=== PATIENT | male | born 1935 | race Caucasian/White ===

== ENCOUNTER 2017-06-04 09:28 | Emergency (ER) | payer MEDICARE, OTHER ==
--- NOTE | 2017-06-04 10:45 | EDM.PDOC ---
ED HPI GENERAL MEDICAL PROBLEM - General Chief Complaint: Back Pain or Injury Stated Complaint: BACK PAIN Time Seen by Provider: 06/04/17 10:45 - History of Present Illness INITIAL COMMENTS - FREE TEXT/NARRATIVE: 81-year-old male presents to the emergency room with worsening chest wall type pain. The patient has had this pain for over a month it is progressively getting worse and was really bad last night. The pain seems to be just below his scapula and to the outside of his rib cage and is very positional if he gets the wrong position it's sharp stabbing pain. This pain does not make his breathing difficulties or shortness of breath any worse. The patient does have worsening cough nonproductive no fevers or chills the patient is treated for congestive heart failure. No history of blood clots in the past he takes aspirin no blood thinners. Prior to this pain getting worse a little over a month ago the patient has had intermittent episodes of this in the past not this severe. Right Back Pain Score (Numeric/FACES): 10 - Related Data Allergies Allergy/AdvReac Type Severity Reaction Status Date / Time aspirin AdvReac Mild Nausea Verified 08/01/14 11:49 Home Meds: Home Meds Aspirin [Halfprin] 81 mg PO DAILY 06/26/14 [History] Hydrocodone/Acetaminophen [Zahl 5-325 Tablet] 1 each PO BEDTIME PRN #10 tablet 06/04/17 [Rx] Sotalol HCl [Sotalol] 40 mg PO BID 06/04/17 [History] atorvaSTATin [Lipitor] 5 mg PO BEDTIME 06/04/17 [History] Past Medical History HEENT History: Reports: Hard of Hearing, Impaired Vision Cardiovascular History: Reports: Heart Failure, High Cholesterol, Hypertension, NE Respiratory History: Reports: SOB Gastrointestinal History: Reports: Diverticulosis Genitourinary History: Reports: Prostate Disorder Musculoskeletal History: Reports: Arthritis Endocrine/Metabolic History: Reports: Diabetes, Type II - Past Surgical History GI Surgical History: Reports: Cholecystectomy Social & Family History - Family History Family Medical History: Noncontributory - Tobacco Use Smoking Status *Q: Never Smoker - Caffeine Use Caffeine Use: Reports: Coffee - Recreational Drug Use Recreational Drug Use: No ED ROS GENERAL - Review of Systems Review Of Systems: See Below Constitutional: Reports: No Symptoms. Denies: Fever, Chills, Weakness, Fatigue HEENT: Reports: No Symptoms Respiratory: Reports: Pleuritic Chest Pain, Cough. Denies: Shortness of Breath , Wheezing, Sputum Cardiovascular: Reports: Chest Pain. Denies: Edema, Palpitations, PND GI/Abdominal: Reports: No Symptoms : Reports: No Symptoms Musculoskeletal: Reports: Back Pain Skin: Reports: No Symptoms Neurological: Reports: No Symptoms Psychiatric: Reports: No Symptoms ED EXAM, UPPER BACK/NECK PAIN - Physical Exam Exam: See Below Exam Limited By: No Limitations General Appearance: Alert, No Apparent Distress, Other (The patient is pain- free if he does not move the wrong direction he is in no acute distress vital signs stable) Head Exam: Atraumatic, Normocephalic Neck Exam: Non-Tender, Full Range of Motion, Normal Alignment, Normal Inspection. No: Tender Midline Cardiovascular/Respiratory: Regular Rate, Rhythm, Normal Breath Sounds, No Respiratory Distress. No: Murmur GI/Abdominal: Normal Bowel Sounds, Soft, Non-Tender, No Organomegaly, No Distention, No Abnormal Bruit, No Mass Extremities: Normal Inspection, No Pedal Edema Neurologic: No Motor/Sensory Deficits, Alert, Oriented x 3 Psychiatric: Normal Affect, Normal Mood Course - Vital Signs Last Recorded V/S: Last Vital Signs Temp 35.6 C 06/04/17 09:37 Pulse 55 L 06/04/17 09:37 Resp 16 06/04/17 09:37 BP 152/96 H 06/04/17 09:37 Pulse Ox 96 06/04/17 09:37 - Orders/Labs/Meds Orders: Active Orders 24 hr Category Date Time Status EKG 12 Lead [EKG Documentation Completion] [RC] STAT Care 06/04/17 10:57 Active Sodium Chloride 0.9% [Normal Saline] 1,000 ml Med 06/04/17 12:30 Active IV ASDIRECTED Sodium Chloride 0.9% [Normal Saline] 100 ml Med 06/04/17 13:45 Active IV ASDIRECTED Sodium Chloride 0.9% [Saline Flush] Med 06/04/17 13:35 Active 10 ml FLUSH ONETIME PRN Medication Orders Sodium Chloride (Normal Saline) 1,000 mls @ 125 mls/hr IV ASDIRECTED CAROLYN Sodium Chloride (Normal Saline) 100 mls @ 80 mls/hr IV ASDIRECTED CAROLYN Last Admin: 06/04/17 14:02 Dose: 80 mls/hr Sodium Chloride (Saline Flush) 10 ml FLUSH ONETIME PRN PRN Reason: IV FLUSH Last Admin: 06/04/17 14:02 Dose: 10 ml Labs: Laboratory Tests 06/04/17 06/04/17 06/04/17 Range/Units 11:20 11:20 11:20 WBC 3.90 L (4.23-9.07) K/mm3 RBC 4.64 (4.63-6.08) M/mm3 Hgb 14.1 (13.7-17.5) gm/L Hct 40.4 (40.1-51.0) % MCV 87.1 (79.0-92.2) fl MCH 30.4 (25.7-32.2) pg MCHC 34.9 (32.2-35.5) g/dl RDW Std Deviation 40.9 (35.1-43.9) fL Plt Count 191 (163-337) K/mm3 MPV 9.5 (9.4-12.3) fl Neutrophils % (Manual) 45 (40-60) % Band Neutrophils % 0 (0-10) % Lymphocytes % (Manual) 46 H (20-40) % Atypical Lymphs % 0 % Monocytes % (Manual) 7 (2-10) % Eosinophils % (Manual) 2 (0.8-7.0) % Basophils % (Manual) 0 L (0.2-1.2) Platelet Estimate Adequate Microcytosis 1+ slight RBC Morph Comment Abnormal D-Dimer, Quantitative (0.19-0.59) mg/L Sodium 140 (136-145) mEq/L Potassium 4.2 (3.5-5.1) mEq/L Chloride 105 (98-107) mEq/L Carbon Dioxide 29 (21-32) mEq/L Anion Gap 10.2 (5-15) BUN 22 H (7-18) mg/dL Creatinine 1.3 (0.7-1.3) mg/dL Est Cr Clr Drug Dosing 50.57 mL/min Estimated GFR (MDRD) 53 (>60) mL/min BUN/Creatinine Ratio 16.9 (14-18) Glucose 134 H (83-115) mg/dL Calcium 9.6 (8.5-10.1) mg/dL Total Bilirubin 0.4 (0.2-1.0) mg/dL AST 18 (15-37) U/L ALT 29 (16-63) U/L Alkaline Phosphatase 81 (46-116) U/L Troponin I < 0.017 (0.00-0.056) ng/mL Voi-O-Mofairrgbxu Pept 63 (0-450) pg/mL Total Protein 6.8 (6.4-8.2) g/dl Albumin 3.7 (3.4-5.0) g/dl Globulin 3.1 gm/dL Albumin/Globulin Ratio 1.2 (1-2) 06/04/17 Range/Units 11:20 WBC (4.23-9.07) K/mm3 RBC (4.63-6.08) M/mm3 Hgb (13.7-17.5) gm/L Hct (40.1-51.0) % MCV (79.0-92.2) fl MCH (25.7-32.2) pg MCHC (32.2-35.5) g/dl RDW Std Deviation (35.1-43.9) fL Plt Count (163-337) K/mm3 MPV (9.4-12.3) fl Neutrophils % (Manual) (40-60) % Band Neutrophils % (0-10) % Lymphocytes % (Manual) (20-40) % Atypical Lymphs % % Monocytes % (Manual) (2-10) % Eosinophils % (Manual) (0.8-7.0) % Basophils % (Manual) (0.2-1.2) Platelet Estimate Microcytosis RBC Morph Comment D-Dimer, Quantitative 1.69 H (0.19-0.59) mg/L Sodium (136-145) mEq/L Potassium (3.5-5.1) mEq/L Chloride (98-107) mEq/L Carbon Dioxide (21-32) mEq/L Anion Gap (5-15) BUN (7-18) mg/dL Creatinine (0.7-1.3) mg/dL Est Cr Clr Drug Dosing mL/min Estimated GFR (MDRD) (>60) mL/min BUN/Creatinine Ratio (14-18) Glucose (83-115) mg/dL Calcium (8.5-10.1) mg/dL Total Bilirubin (0.2-1.0) mg/dL AST (15-37) U/L ALT (16-63) U/L Alkaline Phosphatase (46-116) U/L Troponin I (0.00-0.056) ng/mL Irp-G-Zlahzdoysjh Pept (0-450) pg/mL Total Protein (6.4-8.2) g/dl Albumin (3.4-5.0) g/dl Globulin gm/dL Albumin/Globulin Ratio (1-2) Meds: Medications Generic Name Dose Route Start Last Admin Trade Name Freq PRN Reason Stop Dose Admin Sodium Chloride 1,000 mls @ 125 mls/hr 06/04/17 12:30 Normal Saline IV ASDIRECTED CAROLYN Sodium Chloride 100 mls @ 80 mls/hr 06/04/17 13:45 06/04/17 14:02 Normal Saline IV 80 mls/hr ASDIRECTED CAROLYN Administration Sodium Chloride 10 ml 06/04/17 13:35 06/04/17 14:02 Saline Flush FLUSH 10 ml ONETIME PRN Administration IV FLUSH Discontinued Medications Generic Name Dose Route Start Last Admin Trade Name Freq PRN Reason Stop Dose Admin Sodium Chloride 500 mls @ 999 mls/hr 06/04/17 12:18 06/04/17 12:29 Normal Saline IV 06/04/17 12:48 999 mls/hr .BOLUS ONE Administration Iopamidol 100 ml 06/04/17 13:35 06/04/17 14:02 Isovue-370 (76%) IVPUSH 06/04/17 13:36 100 ml ONETIME ONE Administration - Re-Assessments/Exams Free Text/Narrative Re-Assessment/Exam: 06/04/17 14:52 Laboratory evaluation unrevealing the patient has a creatinine of 1.3 he was pretreated with 500 mL of MS followed by 125 mL an hour while waiting for the results of the CTA CTA was unrevealing for PE. The patient will be discharged with Zahl one half to one at bedtime as needed the patient usually takes ibuprofen at night for his arthritis he may be better served at his age to use Tylenol. Departure - Departure Time of Disposition: 14:55 Disposition: Home, Self-Care 01 Clinical Impression: Atypical chest pain - Discharge Information Prescriptions: Hydrocodone/Acetaminophen [Zahl 5-325 Tablet] 1 each PO BEDTIME PRN #10 tablet PRN Reason: Pain Referrals: PCP,None [Primary Care Provider] - Rajinder Nichols PA-C [Physician [employer] Counter Worker] - Forms: ED Department Discharge Additional Instructions: Return to the emergency room with any questions problems or worsening symptoms. Avoid using ibuprofen on a regular basis try Tylenol 650 mg at bedtime instead of the ibuprofen. I will send you home with Zahl this is a stronger pain medication you can use this 1/2-1 tablet at bedtime as needed. Allow 12 hours after using this medication before driving using potentially hazardous equipment or returning to work. No precautions with using plain Tylenol. Follow-up with your regular provider early this next week - My Orders Last 24 Hours: My Active Orders 06/04/17 10:57 EKG 12 Lead [EKG Documentation Completion] [RC] STAT 06/04/17 12:30 Sodium Chloride 0.9% [Normal Saline] 1,000 ml IV ASDIRECTED 06/04/17 13:35 Sodium Chloride 0.9% [Saline Flush] 10 ml FLUSH ONETIME PRN 06/04/17 13:45 Sodium Chloride 0.9% [Normal Saline] 100 ml IV ASDIRECTED - Assessment/Plan Last 24 Hours: My Active Orders 06/04/17 10:57 EKG 12 Lead [EKG Documentation Completion] [RC] STAT 06/04/17 12:30 Sodium Chloride 0.9% [Normal Saline] 1,000 ml IV ASDIRECTED 06/04/17 13:35 Sodium Chloride 0.9% [Saline Flush] 10 ml FLUSH ONETIME PRN 06/04/17 13:45 Sodium Chloride 0.9% [Normal Saline] 100 ml IV ASDIRECTED
[2017-06-04] MEDS ORDERED: Sodium Chloride 0.9% 500 ML IV ONE (12:18)
--- NOTE | 2017-06-04 12:28 | CR ---
Chest: Frontal view of the chest was obtained. Comparison: Previous chest x-ray of 07/09/16. Heart size and mediastinum are within normal limits. Lungs are clear. Bony structures are grossly intact. Impression: 1. Nothing acute is identified on frontal chest x-ray. Diagnostic code #1
[2017-06-04] MEDS ORDERED: Sodium Chloride 0.9% 1,000 ML IV SCH (12:30)
[2017-06-04] MEDS ORDERED: Sodium Chloride 0.9% 10 ML Syringe FLUSH PRN (13:35)
[2017-06-04] MEDS ORDERED: Iopamidol 755 Mg/ML 100 ML Bottle IVPUSH ONE (13:35)
[2017-06-04] MEDS ORDERED: Sodium Chloride 0.9% 100 ML IV SCH (13:45)
--- NOTE | 2017-06-04 14:24 | CT ---
Addendum: No diagnostic code given on original report. Correct diagnostic code as follows: Diagnostic code #2 --- Addendum1 above dictated on [07/04/2017 12:38] by [Duke Man Hilton J.] --- --- Addendum1 above signed on [07/04/2017 12:40] by [Duke Man Hilton J.] --- --- Original report below dictated on [06/04/2017 14:21] by [Duke Man Hilton J.] --- --- Original report below signed on [06/04/2017 14:21] by [Duke Man Hilton J.] --- CT chest Technique: Multiple axial sections were obtained from above the lung apices inferiorly through the lung bases. Intravenous contrast was utilized. Study has been performed as a pulmonary angiogram protocol. Comparison: No previous chest CT is available, previous chest x-ray performed earlier on the same day is available. Findings: Pulmonary arteries are well-opacified. No filling defects are seen to indicate pulmonary embolism. Slight coronary artery calcification is noted. Mediastinum and hilar regions show no adenopathy or mass. No axillary adenopathy is seen. No pericardial thickening is seen. Small portion of the visualized upper abdominal structures appear within normal limits. Previous cholecystectomy is noted. Lungs show no acute infiltrates. No pleural effusions are seen. Bone window settings were reviewed showing mild scattered degenerative endplate spurring within the spine. Impression: 1. No findings of pulmonary embolism. Other incidental findings. --- Addendum1 signed ---
[2017-06-04 15:28] VITALS: BP 135/88
== END 2017-06-04 15:15 | disposition home or self-care (01) ==
LOC: JD.ED 09:28
DX: R07.89 Other chest pain (principal); I11.0 Hypertensive heart disease with heart failure; I50.9 Heart failure, unspecified; I25.2 Old myocardial infarction; E78.00 Pure hypercholesterolemia, unspecified; M19.90 Unspecified osteoarthritis, unspecified site; E11.9 Type 2 diabetes mellitus without complications; Z79.82 Long term (current) use of aspirin; Z88.6 Allergy status to analgesic agent
CPT/HCPCS: 36415; 71010; 71275; 80053; 83880; 84484; 85025; 85379; 93005; 96360; 96361; 99284; J7030; J7040; J7050; Q9967

== ENCOUNTER 2020-10-07 12:49 | Emergency (ER) | payer MEDICARE, OTHER ==
[2020-10-07 13:17] VITALS: PULSE 70
[2020-10-07] MEDS ORDERED: Famotidine 20 MG/2 ML SDV IVPUSH PRN (13:30)
[2020-10-07] MEDS ORDERED: methylPREDNISolone Sodium Succinate 125 MG/2 ML SDV IVPUSH PRN (13:30)
[2020-10-07] MEDS ORDERED: Sodium Chloride 0.9% 10 ML Syringe FLUSH PRN (13:30)
[2020-10-07] MEDS ORDERED: diphenhydrAMINE 50 MG/ML SDV IVPUSH PRN (13:30)
[2020-10-07] MEDS ORDERED: EPINEPHrine 1:10,000 1 MG/10 ML Syringe IM PRN (13:30)
[2020-10-07] MEDS ORDERED: Sodium Chloride 0.9% 10 ML Syringe FLUSH SCH (13:30)
[2020-10-07] MEDS ORDERED: EPINEPHrine 1 MG/ML SDV IM PRN (13:46)
[2020-10-07] MEDS ORDERED: Casirivimab 1,200 MG, Imdevimab 1,200 MG in Sodium Chloride 0.9% 230 ML IV ONE (14:00)
--- NOTE | 2020-10-07 14:00 | EDM.PDOC ---
ED HPI GENERAL MEDICAL PROBLEM - General Chief Complaint: Respiratory Problem Stated Complaint: COVID + SOB Time Seen by Provider: 10/07/20 13:08 Source of Information: Reports: Patient, RN Notes Reviewed History Limitations: Reports: No Limitations - History of Present Illness INITIAL COMMENTS - FREE TEXT/NARRATIVE: Patient is an 85-year-old male who presents to the ED for the evaluation of his ongoing COVID-19 illness. Patient was diagnosed with COVID-19 on September 30, and he notes that over the last few days, he has had increased cough, nausea with some episodes of vomiting, and diarrhea x1 episode. He notes that he feels like his lungs hurt. He was placed on a 6-day course of a azithromycin for Dr. Granados at the beginning of his COVID-19, and has not been evaluated since. O2 sats were 97 to 98% on room air at time of triage, pulse is 70 bpm, temperature is 98.4 F, respiratory rate of 14, blood pressure is 152/97. Patient does have a history of hypertension and SC, he is over 65, has a history of diabetes type 2. He denies any fevers or chills. Chest Pain Score (Numeric/FACES): 5 - Related Data Allergies Allergy/AdvReac Type Severity Reaction Status Date / Time aspirin AdvReac Mild Nausea Verified 10/07/20 13:10 Home Meds: Home Meds Aspirin [Halfprin] 81 mg PO DAILY 06/26/14 [History] Sotalol HCl [Sotalol] 40 mg PO BID 06/04/17 [History] atorvaSTATin [Lipitor] 10 mg PO BEDTIME 06/04/17 [History] Allopurinol [Zyloprim] 100 mg PO DAILY 10/07/20 [History] metFORMIN [Glucophage XR] 500 mg PO DAILY 10/07/20 [History] Past Medical History HEENT History: Reports: Hard of Hearing, Impaired Vision Cardiovascular History: Reports: Heart Failure, High Cholesterol, Hypertension, SC Respiratory History: Reports: SOB Gastrointestinal History: Reports: Diverticulosis Genitourinary History: Reports: Prostate Disorder Musculoskeletal History: Reports: Arthritis Endocrine/Metabolic History: Reports: Diabetes, Type II Oncologic (Cancer) History: Reports: Bladder - Past Surgical History GI Surgical History: Reports: Cholecystectomy Social & Family History - Family History Family Medical History: No Pertinent Family History - Tobacco Use Tobacco Use Status *Q: Never Tobacco User - Caffeine Use Caffeine Use: Reports: Coffee - Recreational Drug Use Recreational Drug Use: No ED ROS GENERAL - Review of Systems Review Of Systems: Comprehensive ROS is negative, except as noted in HPI. ED EXAM, GENERAL - Physical Exam Exam: See Below Exam Limited By: No Limitations General Appearance: Alert, WD/WN, No Apparent Distress Respiratory/Chest: No Respiratory Distress, Lungs Clear, Normal Breath Sounds, No Accessory Muscle Use, Chest Non-Tender Cardiovascular: Normal Peripheral Pulses, Regular Rate, Rhythm, No Edema Peripheral Pulses: 2+: Radial (L), Radial (R) GI/Abdominal: Normal Bowel Sounds, Soft, Non-Tender, No Distention, No Mass Extremities: Normal Inspection, Normal Capillary Refill Neurological: Alert, Oriented, Normal Cognition, No Motor/Sensory Deficits Psychiatric: Normal Affect, Normal Mood Skin Exam: Warm, Dry, Intact, Normal Color, No Rash #1 Interpretation EKG Date: 10/07/20 Time: 13:38 Rhythm: NSR Rate (Beats/Min): 68 [place]: LAD-Left [place] Deviation (-21 ) P-Wave: Present QRS: Normal ST-T: Normal QT: Normal EKG Interpretation Comments: No obvious ischemia or acute ST changes noted, reviewed by myself and Dr. Metcalf. Course - Vital Signs Last Recorded V/S: Last Vital Signs Temp 97.4 F 10/07/20 16:09 Pulse 70 10/07/20 16:09 Resp 24 H 10/07/20 16:09 BP 153/66 H 10/07/20 16:09 Pulse Ox 95 10/07/20 16:09 - Orders/Labs/Meds Orders: Active Orders 24 hr Category Date Time Status Peripheral IV Insertion Adult [OM.PC] Routine Oth 10/07/20 13:30 Ordered Labs: Laboratory Tests 10/07/20 10/07/20 10/07/20 Range/Units 13:50 13:50 13:50 WBC 3.08 L (4.23-9.07) K/mm3 RBC 4.77 (4.63-6.08) M/mm3 Hgb 13.9 (13.7-17.5) gm/dl Hct 41.0 (40.1-51.0) % MCV 86.0 (79.0-92.2) fl MCH 29.1 (25.7-32.2) pg MCHC 33.9 (32.2-35.5) g/dl RDW Std Deviation 42.0 (35.1-43.9) fL Plt Count 175 (163-337) K/mm3 MPV 9.4 (9.4-12.3) fl Neutrophils % (Manual) 57 (40-60) % Band Neutrophils % 0 (0-10) % Lymphocytes % (Manual) 31 (20-40) % Atypical Lymphs % 0 % Monocytes % (Manual) 9 (2-10) % Eosinophils % (Manual) 3 (0.8-7.0) % Basophils % (Manual) 0 L (0.2-1.2) Platelet Estimate Adequate RBC Morph Comment Normal PT 10.8 (9.7-12.0) SECONDS INR 1.01 APTT 26.5 (21.7-31.4) SECONDS D-Dimer, Quantitative 0.79 H (0.19-0.50) mg/L Sodium (136-145) mEq/L Potassium (3.5-5.1) mEq/L Chloride (98-107) mEq/L Carbon Dioxide (21-32) mEq/L Anion Gap (5-15) BUN (7-18) mg/dL Creatinine (0.7-1.3) mg/dL Est Cr Clr Drug Dosing mL/min Estimated GFR (MDRD) (>60) mL/min BUN/Creatinine Ratio (14-18) Glucose (83-115) mg/dL Lactic Acid (0.4-2.0) mmol/L Calcium (8.5-10.1) mg/dL Magnesium (1.8-2.4) mg/dl Ferritin (26-388) ng/ml Total Bilirubin (0.2-1.0) mg/dL AST (15-37) U/L ALT (16-63) U/L Alkaline Phosphatase (46-116) U/L Lactate Dehydrogenase (85-227) U/L Troponin I (0.00-0.056) ng/mL C-Reactive Protein 2.7 H* (<1.0) mg/dL NT-Pro-B Natriuret Pep (0-450) pg/mL Total Protein (6.4-8.2) g/dl Albumin (3.4-5.0) g/dl Globulin gm/dL Albumin/Globulin Ratio (1-2) 10/07/20 10/07/20 10/07/20 Range/Units 13:50 13:50 13:50 WBC (4.23-9.07) K/mm3 RBC (4.63-6.08) M/mm3 Hgb (13.7-17.5) gm/dl Hct (40.1-51.0) % MCV (79.0-92.2) fl MCH (25.7-32.2) pg MCHC (32.2-35.5) g/dl RDW Std Deviation (35.1-43.9) fL Plt Count (163-337) K/mm3 MPV (9.4-12.3) fl Neutrophils % (Manual) (40-60) % Band Neutrophils % (0-10) % Lymphocytes % (Manual) (20-40) % Atypical Lymphs % % Monocytes % (Manual) (2-10) % Eosinophils % (Manual) (0.8-7.0) % Basophils % (Manual) (0.2-1.2) Platelet Estimate RBC Morph Comment PT (9.7-12.0) SECONDS INR APTT (21.7-31.4) SECONDS D-Dimer, Quantitative (0.19-0.50) mg/L Sodium 137 (136-145) mEq/L Potassium 3.7 (3.5-5.1) mEq/L Chloride 102 (98-107) mEq/L Carbon Dioxide 25 (21-32) mEq/L Anion Gap 13.7 (5-15) BUN 17 (7-18) mg/dL Creatinine 1.2 (0.7-1.3) mg/dL Est Cr Clr Drug Dosing 51.19 mL/min Estimated GFR (MDRD) 58 (>60) mL/min BUN/Creatinine Ratio 14.2 (14-18) Glucose 128 H (83-115) mg/dL Lactic Acid (0.4-2.0) mmol/L Calcium 8.9 (8.5-10.1) mg/dL Magnesium 2.2 (1.8-2.4) mg/dl Ferritin 1855 H (26-388) ng/ml Total Bilirubin 0.5 (0.2-1.0) mg/dL AST 50 H (15-37) U/L ALT 54 (16-63) U/L Alkaline Phosphatase 93 (46-116) U/L Lactate Dehydrogenase 250 H (85-227) U/L Troponin I < 0.017 (0.00-0.056) ng/mL C-Reactive Protein (<1.0) mg/dL NT-Pro-B Natriuret Pep 100 (0-450) pg/mL Total Protein 6.9 (6.4-8.2) g/dl Albumin 3.1 L (3.4-5.0) g/dl Globulin 3.8 gm/dL Albumin/Globulin Ratio 0.8 L (1-2) 10/07/20 Range/Units 13:50 WBC (4.23-9.07) K/mm3 RBC (4.63-6.08) M/mm3 Hgb (13.7-17.5) gm/dl Hct (40.1-51.0) % MCV (79.0-92.2) fl MCH (25.7-32.2) pg MCHC (32.2-35.5) g/dl RDW Std Deviation (35.1-43.9) fL Plt Count (163-337) K/mm3 MPV (9.4-12.3) fl Neutrophils % (Manual) (40-60) % Band Neutrophils % (0-10) % Lymphocytes % (Manual) (20-40) % Atypical Lymphs % % Monocytes % (Manual) (2-10) % Eosinophils % (Manual) (0.8-7.0) % Basophils % (Manual) (0.2-1.2) Platelet Estimate RBC Morph Comment PT (9.7-12.0) SECONDS INR APTT (21.7-31.4) SECONDS D-Dimer, Quantitative (0.19-0.50) mg/L Sodium (136-145) mEq/L Potassium (3.5-5.1) mEq/L Chloride (98-107) mEq/L Carbon Dioxide (21-32) mEq/L Anion Gap (5-15) BUN (7-18) mg/dL Creatinine (0.7-1.3) mg/dL Est Cr Clr Drug Dosing mL/min Estimated GFR (MDRD) (>60) mL/min BUN/Creatinine Ratio (14-18) Glucose (83-115) mg/dL Lactic Acid 1.3 (0.4-2.0) mmol/L Calcium (8.5-10.1) mg/dL Magnesium (1.8-2.4) mg/dl Ferritin (26-388) ng/ml Total Bilirubin (0.2-1.0) mg/dL AST (15-37) U/L ALT (16-63) U/L Alkaline Phosphatase (46-116) U/L Lactate Dehydrogenase (85-227) U/L Troponin I (0.00-0.056) ng/mL C-Reactive Protein (<1.0) mg/dL NT-Pro-B Natriuret Pep (0-450) pg/mL Total Protein (6.4-8.2) g/dl Albumin (3.4-5.0) g/dl Globulin gm/dL Albumin/Globulin Ratio (1-2) Meds: Medications Discontinued Medications Generic Name Dose Route Start Last Admin Trade Name Freq PRN Reason Stop Dose Admin Diphenhydramine HCl 50 mg 10/07/20 13:30 Benadryl IVPUSH ONETIME PRN hypersensitivity reaction Epinephrine HCl 0.3 mg 10/07/20 13:46 Adrenalin IM ONETIME PRN hypersensitivity reaction Famotidine 20 mg 10/07/20 13:30 Pepcid IVPUSH ONETIME PRN hypersensitivity reaction Non-Formulary Medication 1,200 250 mls @ 250 mls/hr 10/07/20 14:00 10/07/20 14:12 mg/ Non-Formulary Medication IV 10/07/20 14:59 250 mls/hr 1,200 mg/ Sodium Chloride ONETIME ONE Administration Methylprednisolone Sodium Succinate 125 mg 10/07/20 13:30 Solu-Medrol IVPUSH ONETIME PRN hypersensitivity reaction Sodium Chloride 30 ml 10/07/20 13:30 10/07/20 15:20 Saline Flush FLUSH 30 ml ASDIRECTED CAROLYN Administration Sodium Chloride 10 ml 10/07/20 13:30 10/07/20 13:50 Saline Flush FLUSH 10 ml ASDIRECTED PRN Administration Keep Vein Open - Re-Assessments/Exams Free Text/Narrative Re-Assessment/Exam: 10/07/20 14:07 Patient presents to the ED for his ongoing COVID-19 disease, due to this being day 7 of his disease, he does fall within the timeframe for monoclonal antibody therapy. Have ordered that to be instilled. He will also get baseline labs, chest x-ray for evaluation of his ongoing COVID-19 illness. I spoke with patient to provide information about Regeneron treatment. I offered them the "Patient and caregiver EUA fact sheet" to read and review. I stated that the drug has been approved by an emergency use authorization (EUA) process and has not been fully FDA reviewed or approved. The patient meets the EUA requirements. I discussed there are other potential treatment options that are currently not FDA approved to treat COVID-19. I did offer an opportunity to ask questions and all questions were answered. Patient voiced understanding and agreed to proceed with the treatment. 10/07/20 14:52 The patient's chest x-ray demonstrates questionable pneumonia within the lateral right upper chest. Other incidental findings were appreciated. Patient has no elevated white count to suggest bacterial pneumonia again he is Covid positive, so this is likely viral pneumonia in etiology. 10/07/20 15:30 1 patient did receive Regeneron therapy, and has had no adverse reaction. He will be kept in this ER, until 16:12 for observation and then will be discharged home with general recommendations. Departure - Departure Time of Disposition: 15:31 Disposition: Home, Self-Care 01 Condition: Good Clinical Impression: COVID-19 - Discharge Information *PRESCRIPTION DRUG MONITORING PROGRAM REVIEWED*: No *COPY OF PRESCRIPTION DRUG MONITORING REPORT IN PATIENT BIRDIE: No Instructions: COVID-19 Frequently Asked Questions, Prevent the Spread of COVID- 19 if You Are Sick - [facility] Referrals: Eugenio Granados MD [Primary Care Provider] - Forms: ED Department Discharge Additional Instructions: You were seen in the ER today for ongoing and/or worsening respiratory symptoms. Your chest x-ray showed small signs of viral pneumonia typical of COVID-19 at this time. Your oxygen levels were great at 97-98% on RA. Laboratory evaluation was also in line with ongoing COVID-19 infection. There are no worrisome abnormalities found on lab taken today. You were given IV Regeneron therapy which is a monoclonal antibody, for your COVID-19 disease, this is to hopefully lessen the disease severity, and length of symptoms that you will be experiencing. Please note from what we know of this disease, the day 7 to 10-day window seems to be the worst for the disease, and then it seems to get better after that. Please try to increase your oral fluid intake, and eat multiple small meals throughout the day, to keep yourself healthy. You need to keep yourself nourished in order to fight off this disease. You can try a liquid diet like gatorade/powerade as well to get your electrolytes. You may take 500 mg Tylenol every hours 6 hours for pain/fever relief. Do not exceed 4000 mg Tylenol in a 24-hour time span. However, running a fever is your body's natural response to illness, and it allows the body to develop antibodies to disease, we are recommending trying to limit the use of Tylenol as much as possible to allow your body's natural immune response. Recommend you obtain a pulse oximeter and monitor your oxygen levels at home, you should place the monitor on your finger, and sit in a calm, quiet position for a few minutes and then record the number that is on the screen. If this consistently below 90% on room air without movement, this would be cause for concern to come back to the hospital for further management of your COVID-19 disease. Sepsis Event Note (ED) - Evaluation Sepsis Screening Result: No Definite Risk - Focused Exam Vital Signs: Vital Signs Temp Pulse Resp BP Pulse Ox 10/07/20 16:09 97.4 F 70 24 H 153/66 H 95 10/07/20 13:12 98.4 F 70 13 152/97 H 100 - My Orders Last 24 Hours: My Active Orders 10/07/20 13:30 Peripheral IV Insertion Adult [OM.PC] Routine - Assessment/Plan Last 24 Hours: My Active Orders 10/07/20 13:30 Peripheral IV Insertion Adult [OM.PC] Routine
--- NOTE | 2020-10-07 14:44 | CR ---
Chest: Portable view of the chest was obtained. Comparison: Prior chest x-ray of 06/04/17. Heart size and mediastinum are within normal limits for portable technique. Minimal scarring is seen within the left base. Mild increased density is noted within the lateral right upper chest and difficult to exclude pneumonia. Lungs otherwise are clear. Bony structures show degenerative spurring within the spine. Impression: 1. Questionable pneumonia within the lateral right upper chest. 2. Other findings which are felt to be incidental. Diagnostic code #3
[2020-10-07 16:18] VITALS: BP 153/66
== END 2020-10-07 17:20 | disposition home or self-care (01) ==
LOC: JD.ED 12:49
DX: U07.1 COVID-19 (principal); I11.0 Hypertensive heart disease with heart failure; I50.9 Heart failure, unspecified; E78.00 Pure hypercholesterolemia, unspecified; E11.9 Type 2 diabetes mellitus without complications; M19.90 Unspecified osteoarthritis, unspecified site; I25.2 Old myocardial infarction; Z88.6 Allergy status to analgesic agent; Z79.82 Long term (current) use of aspirin; Z79.899 Other long term (current) drug therapy
CPT/HCPCS: 36415; 71045; 71045-26; 80053; 82728; 83605; 83615; 83735; 83880; 84484; 85007; 85027; 85379; 85610; 85730; 86140; 93005; 99285-25; J7050; M0243

== ENCOUNTER 2024-05-27 09:20 | Emergency (ER) | payer MEDICARE, OTHER ==
[2024-05-27] MEDS ORDERED: Sodium Chloride 0.9% 10 ML Syringe FLUSH PRN (10:03)
[2024-05-27 10:17] LABS: BASOPHILS PERCENT AUTO 0.5 % (0.0-1.0); EOSINOPHILS ABSOLUTE AUTO 0.1 K/mm3 (0.0-0.4); HEMOGLOBIN 13.5 gm/dl (14.0-18.0); IMMATURE GRAN ABSOLUTE AUTO 0.03 K/mm3 (0.00-0.05); IMMATURE GRAN PERCENT AUTO 0.8 % (0.0-0.4); LYMPHOCYTES ABSOLUTE AUTO 1.5 K/mm3 (1.0-4.8); LYMPHOCYTES PERCENT AUTO 38.6 % (24.0-44.0); MEAN CORPUSCULAR HEMOGLOBIN 31.7 pg (28.0-32.0); MEAN CORPUSCULAR HGB CONC 34.6 g/dl (32.0-36.0); MEAN CORPUSCULAR VOLUME 91.5 fl (83.0-99.0); MEAN PLATELET VOLUME 10.3 fl (9.4-12.4); MONOCYTES ABSOLUTE AUTO 0.3 K/mm3 (0.0-0.8); MONOCYTES PERCENT AUTO 6.5 % (0.0-8.0); NEUTROPHILS ABSOLUTE AUTO 2.1 K/mm3 (1.8-7.7); NEUTROPHILS PERCENT AUTO 51.6 % (41.0-71.0); PLATELET COUNT,PLT 189 K/mm3 (150-400); RED BLOOD CELL COUNT 4.26 M/mm3 (4.52-5.90); WHITE BLOOD CELL COUNT,WBC 3.99 K/mm3 (3.9-11.3)
[2024-05-27 10:42] LABS: A/G RATIO 1.3 (1-2); ALANINE AMINOTRANSFERASE,ALT 34 U/L (16-63); ALBUMIN 3.9 g/dl (3.4-5.0); ALKALINE PHOSPHATASE 104 U/L (46-116); ANION GAP 11.4 (5-15); ASPARTATE AMNIOTRANSFERASE,AST 14 U/L (15-37); BILIRUBIN TOTAL 0.7 mg/dL (0.2-1.0); BLOOD UREA NITROGEN,BUN 13 mg/dL (7-18); BUN/CREATININE RATIO 10.8 (14-18); CALCIUM 9.3 mg/dL (8.5-10.1); CARBON DIOXIDE,CO2 27 mEq/L (21-32); CHLORIDE,CL 103 mEq/L (98-107); CREATININE 1.2 mg/dL (0.7-1.3); ESTIMATED GFR 59 mL/min (>60); GLUCOSE RANDOM 186 mg/dL (70-99); POTASSIUM,K 4.4 mEq/L (3.5-5.1); PROTEIN TOTAL,TP 6.9 g/dl (6.4-8.2); SODIUM,NA 137 mEq/L (136-145); TROPONIN I HIGH SENSITIVITY 10 pg/mL (<=76)
[2024-05-27 10:44] LABS: C-REACTIVE PROTEIN < 0.05 mg/dL (<0.30)
[2024-05-27 12:01] VITALS: BP 165/84; PULSE 63
[2024-05-29 18:03] LABS: HEMOGLOBIN A1C 7.1 %
== END 2024-05-27 12:22 | disposition home or self-care (01) ==
LOC: JD.ED 09:20
DX: H81.10 Benign paroxysmal vertigo, unspecified ear (principal); E11.8 Type 2 diabetes mellitus with unspecified complications; I11.0 Hypertensive heart disease with heart failure; I50.9 Heart failure, unspecified; M19.90 Unspecified osteoarthritis, unspecified site; E78.00 Pure hypercholesterolemia, unspecified; Z79.82 Long term (current) use of aspirin; Z79.899 Other long term (current) drug therapy; Z90.49 Acquired absence of other specified parts of digestive tract
CPT/HCPCS: 36415; 70450; 70450-26; 80053; 82947; 83036; 83735; 83880; 84484; 85025; 86140; 93005; 99284

== ENCOUNTER 2025-01-04 06:15 | Day surgery (SDC) | payer MEDICARE ==
[~2025-01-04 06:15] MED LIST: Sodium Chloride 0.9% 10 ML Syringe FLUSH PRN; Sodium Chloride 0.9% 10 ML Syringe FLUSH SCH
[2025-01-04] MEDS: Lactated Ringers 1,000 ML IV SCH (10:00)
[2025-01-04] MEDS ORDERED: ceFAZolin 2 GM Vial ONE (10:45)
[2025-01-04] MEDS ORDERED: Propofol 200 MG/20 ML SDV ONE ×2 (10:45→11:28)
[2025-01-04] MEDS: Bupivacaine 0.25% 10 ML SDV ONE (11:34)
[2025-01-04] MEDS: Lidocaine 1% 10 ML MDV ONE (11:34)
[2025-01-04 14:01] VITALS: BP 135/85; PULSE 62
== END 2025-01-04 14:05 | disposition home or self-care (01) ==
LOC: JD.SDS 06:15
PROVIDERS: ATTEND Orthopaedic Surgery
DX: M1A.9XX1 Chronic gout, unspecified, with tophus (tophi) (principal); I11.0 Hypertensive heart disease with heart failure; I50.9 Heart failure, unspecified; E11.9 Type 2 diabetes mellitus without complications; I25.10 Atherosclerotic heart disease of native coronary artery without angina pectoris; E78.2 Mixed hyperlipidemia; Z87.891 Personal history of nicotine dependence; Z79.84 Long term (current) use of oral hypoglycemic drugs; Z79.899 Other long term (current) drug therapy
CPT/HCPCS: 26236; J0665; J0690; J2003; J2704; J7120; 01830; 99100

== ENCOUNTER 2025-02-07 08:51 | Day surgery (SDC) | payer MEDICARE ==
[~2025-02-07 08:51] MED LIST changes: +Lidocaine 1% 30 ML SDV ONE
[2025-02-07] MEDS: Lactated Ringers 1,000 ML IV SCH (09:30)
[2025-02-07] MEDS ORDERED: Propofol 200 MG/20 ML SDV ONE (10:20)
[2025-02-07] MEDS ORDERED: fentaNYL 100 MCG/2 ML SDV ONE (10:20)
[2025-02-07] MEDS ORDERED: ceFAZolin 2 GM Vial ONE (10:21)
[2025-02-07] MEDS: Bupivacaine 0.25% 10 ML SDV ONE (11:20)
[2025-02-07] MEDS: Lidocaine 1% 30 ML SDV ONE (11:20)
[2025-02-07 13:01] VITALS: BP 130/72; PULSE 60
== END 2025-02-07 12:50 | disposition home or self-care (01) ==
LOC: JD.SDS 08:51
PROVIDERS: ATTEND Orthopaedic Surgery
DX: M1A.9XX1 Chronic gout, unspecified, with tophus (tophi) (principal); I11.0 Hypertensive heart disease with heart failure; I50.9 Heart failure, unspecified; E11.9 Type 2 diabetes mellitus without complications; I25.10 Atherosclerotic heart disease of native coronary artery without angina pectoris; Z79.899 Other long term (current) drug therapy; Z79.84 Long term (current) use of oral hypoglycemic drugs
CPT/HCPCS: 26236; J0665; J0690; J2003; J2704; J3010; J7120

== ENCOUNTER 2025-03-19 12:02 | Emergency (ER) | payer MEDICARE ==
[2025-03-19 12:41] LABS: BASOPHILS PERCENT AUTO 0.2 % (0.0-1.0); EOSINOPHILS PERCENT AUTO 0.2 % (0.0-6.0); HEMATOCRIT 37.4 % (42.0-52.0); HEMOGLOBIN 12.9 gm/dl (14.0-18.0); IMMATURE GRAN ABSOLUTE AUTO 0.08 K/mm3 (0.00-0.05); IMMATURE GRAN PERCENT AUTO 1.5 % (0.0-0.4); LYMPHOCYTES ABSOLUTE AUTO 1.5 K/mm3 (1.0-4.8); LYMPHOCYTES PERCENT AUTO 28.1 % (24.0-44.0); MEAN CORPUSCULAR HEMOGLOBIN 31.4 pg (28.0-32.0); MEAN CORPUSCULAR HGB CONC 34.5 g/dl (32.0-36.0); MEAN PLATELET VOLUME 9.4 fl (9.4-12.4); MONOCYTES ABSOLUTE AUTO 0.6 K/mm3 (0.0-0.8); MONOCYTES PERCENT AUTO 11.1 % (0.0-8.0); NEUTROPHILS ABSOLUTE AUTO 3.1 K/mm3 (1.8-7.7); NEUTROPHILS PERCENT AUTO 58.9 % (41.0-71.0); PLATELET COUNT,PLT 200 K/mm3 (150-400); RED BLOOD CELL COUNT 4.11 M/mm3 (4.52-5.90); WHITE BLOOD CELL COUNT,WBC 5.33 K/mm3 (3.9-11.3)
[2025-03-19] MEDS: Sodium Chloride 0.9% 250 ML IV SCH (12:43)
[2025-03-19 13:07] LABS: A/G RATIO 1.2 (1-2); ALBUMIN 3.7 g/dl (3.4-5.0); ANION GAP 12.1 (5-15); BILIRUBIN TOTAL 0.6 mg/dL (0.2-1.0); BUN/CREATININE RATIO 9.2 (14-18); CALCIUM 9.4 mg/dL (8.5-10.1); CREATININE 1.2 mg/dL (0.7-1.3); EST CRCL DRUG DOSING (CG) 47.6 mL/min; MAGNESIUM 1.7 mg/dL (1.8-2.4); POTASSIUM,K 4.1 mEq/L (3.5-5.1); PROTEIN TOTAL,TP 6.8 g/dl (6.4-8.2)
[2025-03-19 14:40] LABS: APPEARANCE,URINE CLEAR (Clear); BILIRUBIN,URINE NEGATIVE (Negative); COLOR,URINE YELLOW (Yellow); GLUCOSE,URINE NEGATIVE (Negative); KETONES,URINE NEGATIVE (Negative); LEUKOCYTE ESTERASE,URINE NEGATIVE (Negative); NITRITE,URINE NEGATIVE (Negative); OCCULT BLOOD,URINE NEGATIVE (Negative); PROTEIN,URINE 1+ (Negative); UROBILINOGEN,URINE 0.2 (0.2-1.0)
[2025-03-19 15:12] VITALS: BP 127/70; PULSE 78
[2025-03-19 15:17] LABS: RBC,URINE 0-5 /hpf (0-5); SQUAMOUS EPITHELIAL CELLS,UR 0-5 /hpf (0-5); WBC,URINE 0-5 /hpf (0-5)
[2025-03-19 15:28] LABS: BACTERIA,URINE FEW /hpf (FEW)
[2025-03-19 15:29] LABS: MUCUS,URINE MODERATE /hpf (FEW)
== END 2025-03-19 15:18 | disposition home or self-care (01) ==
LOC: JD.ED 12:02
DX: E86.9 Volume depletion, unspecified (principal); R00.9 Unspecified abnormalities of heart beat; I11.0 Hypertensive heart disease with heart failure; I50.9 Heart failure, unspecified; E11.9 Type 2 diabetes mellitus without complications; E78.00 Pure hypercholesterolemia, unspecified; Z90.49 Acquired absence of other specified parts of digestive tract; Z79.82 Long term (current) use of aspirin; Z79.899 Other long term (current) drug therapy; Z79.84 Long term (current) use of oral hypoglycemic drugs
CPT/HCPCS: 36415; 71045; 80053; 81001; 82550; 83735; 83880; 84484; 85025; 93005; 96360; 99285; J7030; 93010; 99283

== ENCOUNTER 2025-08-22 16:13 | Emergency (ER) | payer MEDICARE ==
[2025-08-22] MEDS ORDERED: Sodium Chloride 0.9% 10 ML Syringe FLUSH PRN (16:26)
[2025-08-22 17:00] LABS: BASOPHILS ABSOLUTE AUTO 0.0 K/mm3 (0.0-0.2); BASOPHILS PERCENT AUTO 0.4 % (0.0-1.0); EOSINOPHILS ABSOLUTE AUTO 0.0 K/mm3 (0.0-0.4); EOSINOPHILS PERCENT AUTO 0.6 % (0.0-6.0); IMMATURE GRAN ABSOLUTE AUTO 0.10 K/mm3 (0.00-0.05); IMMATURE GRAN PERCENT AUTO 1.9 % (0.0-0.4); LYMPHOCYTES ABSOLUTE AUTO 1.8 K/mm3 (1.0-4.8); LYMPHOCYTES PERCENT AUTO 33.3 % (24.0-44.0); MEAN PLATELET VOLUME 9.5 fl (9.4-12.4); MONOCYTES ABSOLUTE AUTO 0.6 K/mm3 (0.0-0.8); MONOCYTES PERCENT AUTO 10.5 % (0.0-8.0); NEUTROPHILS ABSOLUTE AUTO 2.8 K/mm3 (1.8-7.7); NEUTROPHILS PERCENT AUTO 53.3 % (41.0-71.0); NRBC ABSOLUTE 0.00 (0.00-0.02); NRBC PERCENT 0.0 % (0.0-0.2); PLATELET COUNT,PLT 161 K/mm3 (150-400); RED BLOOD CELL COUNT 3.97 M/mm3 (4.52-5.90); WHITE BLOOD CELL COUNT,WBC 5.31 K/mm3 (3.9-11.3)
[2025-08-22 17:24] LABS: A/G RATIO 1.2 (1-2); ALANINE AMINOTRANSFERASE,ALT 19.0 U/L (16-63); ASPARTATE AMNIOTRANSFERASE,AST 13.0 U/L (15-37); BILIRUBIN TOTAL 0.4 mg/dL (0.2-1.0); BLOOD UREA NITROGEN,BUN 14.0 mg/dL (7-18); CARBON DIOXIDE,CO2 30.0 mEq/L (21-32); CHLORIDE,CL 104.0 mEq/L (98-107); CREATININE 0.9 mg/dL (0.7-1.3); EST CRCL DRUG DOSING (CG) 62.27 mL/min; ESTIMATED GFR 82.0 mL/min (>60); GLUCOSE RANDOM 123.0 mg/dL (70-99); LACTIC ACID 1.3 mmol/L (0.4-2.0); POTASSIUM,K 3.7 mEq/L (3.5-5.1); PROTEIN TOTAL,TP 6.9 g/dl (6.4-8.2); SODIUM,NA 143.0 mEq/L (136-145); TROPONIN I HIGH SENSITIVITY 18.0 pg/mL (<=76)
[2025-08-22] MEDS: hydrALAZINE 20 MG/ML SDV IVPUSH ONE (18:29)
[2025-08-22] MEDS: Magnesium Sulfat/D5W 1GM/100ML 1 GM in Premix Bag 1 BAG IV ONE (18:35)
[2025-08-22 20:07] LABS: APPEARANCE,URINE CLEAR (Clear); GLUCOSE,URINE NEGATIVE (Negative); OCCULT BLOOD,URINE NEGATIVE (Negative)
[2025-08-22 20:29] VITALS: BP 162/89; PULSE 66
[2025-08-22 20:46] LABS: EPITHELIAL CELLS,URINE 0-5 /hpf (0-5)
== END 2025-08-22 20:27 | disposition home or self-care (01) ==
LOC: JD.ED 16:13
DX: I11.0 Hypertensive heart disease with heart failure (principal); E83.42 Hypomagnesemia; I50.9 Heart failure, unspecified; E11.9 Type 2 diabetes mellitus without complications; Z79.82 Long term (current) use of aspirin; Z79.899 Other long term (current) drug therapy; Z86.16 Personal history of COVID-19; Z90.49 Acquired absence of other specified parts of digestive tract
CPT/HCPCS: 36415; 71045; 80053; 81001; 83605; 83735; 84484; 85025; 93005; 96365; 96375; 99284; J0360; J3475